=== PATIENT | female | born 1995 | race Caucasian/White ===

== ENCOUNTER 2021-08-12 16:07 | Observation (INO) | payer BC, OTHER ==
[~2021-08-12] VITALS: Ht 170.2 cm; Wt 75.3 kg
[2021-08-12] MEDS ORDERED: ZOLPIDEM 5 MG TABLET. PO PRN (16:30)
[2021-08-12] MEDS ORDERED: IV RINGERS,LACTATED 1000ML 1,000 ML IV SCH ×2 (16:30→16:45)
[2021-08-12] MEDS ORDERED: ACETAMINOPHEN 325 MG TABLET. PO PRN (16:30)
[2021-08-12] MEDS ORDERED: MAG HYDROX/ALUMINUM HYD/SIMETH 30 ML ORAL.SUSP PO PRN (16:30)
[2021-08-12] MEDS ORDERED: BETAMET ACET&NA PHOS 30 MG/5 ML VIAL. IM SCH (16:44)
[2021-08-12] MEDS ORDERED: IBUPROFEN 400 MG TABLET. PO PRN (16:45)
[2021-08-12] MEDS ORDERED: OXYTOCIN 30 UNIT/500 ML PREMIX 500 ML IV PRN (16:45)
[2021-08-12] MEDS ORDERED: 0.9 % SODIUM CHLORIDE 10 ML DISP.SYRIN. IV PRN (16:45)
[2021-08-12] MEDS ORDERED: AMPICILLIN SODIUM 2 GM in IV NORMAL SALINE 100ML 100 ML IV ONE (16:45)
[2021-08-12] MEDS ORDERED: LIDOCAINE 1% PF 30 ML VIAL. INJ PRN (16:45)
[2021-08-12] MEDS ORDERED: TERBUTALINE 1 MG/ML VIAL. SQ PRN (16:45)
[2021-08-12] MEDS ORDERED: MAGNESIUM SULFATE 4GM 100 ML IV STA (16:46)
[2021-08-12 16:52] LABS: AMNIO PT POSITIVE
[2021-08-12 16:55] LABS: BILIRUBIN,URINE NEGATIVE (NEG); CLARITY,URINE CLEAR; COLOR,URINE YELLOW; NITRITE,URINE NEGATIVE (NEG); PH,URINE 7.5 (<5.0-8.0); PROTEIN,URINE NEGATIVE (NEG-TRACE); UROBILINOGEN,URINE 0.2 mg/dL (0.2 mg/dL)
[2021-08-12] MEDS ORDERED: MAGNESIUM SULFATE 20GM 500 ML IV SCH (17:00)
[2021-08-12 17:02] VITALS: BP 124/77
[2021-08-12 17:11] LABS: BACTERIA,URINE 0 /HPF (0-FEW); RBC,URINE 0 /HPF (0-2); WBC,URINE OCC /HPF (0-4)
--- NOTE | 2021-08-12 17:26 | PDOC1 ---
SLAG SKIMMER H&P Date of Admission: Date of Admission: Aug 12, 2021 at 16:07 History of Present Illness: 26yo @ 32.6 weeks presents via ambulance from [facility] with complaints of uterine contractions and LOF. Reports small trickle of clear, non- odorous fluid @ 1200 - followed by continued leaking. Onset of UCs at approximately 1400 - describes as [place] q 5-7 minutes. Uncomplicated per pt. report, denies complications with previous /labor/delivery. Records requested and received. BT: AB-, received Rhogam @ 28 weeks (07/25/2021), RPR NR, RI, Hep B Neg, HIV Neg. GC/CT Neg. GCT: 73 TDaP (07/25/2021). No covid vaccination. Past Medical History: Cardiovascular: No pertinent hx Pulmonary: No pertinent hx GI: No pertinent hx Heme/Onc: No pertinent hx Psych: Depression Rheumatologic: No pertinent hx Infectious disease: No pertinent hx ENT: No pertinent hx Renal/: No pertinent hx Endocrine: No pertinent hx Dermatology: No pertinent hx Grav: 3 Para: 1 Past Surgical History: C Appy 2019 Social History: Smoke: No ALCOHOL: none Drugs: None Medications: Meds: Current Medications Medications (Trade) Dose Ordered Sig/Alberto Route PRN Reason Start Time Stop Time Status Last Admin Dose Admin Ringer's Solution 1,000 ml @ 125 mls/hr Q8H IV 08/12/21 16:30 08/12/21 16:49 Ampicillin Sodium 2 gm/Sodium Chloride 100 ml @ 200 mls/hr ONCE ONCE IV 08/12/21 16:45 08/12/21 17:14 08/12/21 16:50 Betamethasone Sodium Phosphate (Celestone Soluspan) 12 mg Q24H IM 08/12/21 16:44 08/13/21 16:45 08/12/21 16:55 Magnesium Sulfate 100 ml @ 25 mls/hr 1X STAT IV 08/12/21 16:46 08/12/21 20:45 08/12/21 16:55 Allergies: Coded Allergies: No Known Drug Allergies (Unverified , 08/12/21) Physical Exam: Vital Signs: Vital Signs Date Time Temp Pulse Resp B/P (MAP) Pulse Ox O2 Delivery O2 Flow Rate FiO2 08/12/21 17:02 99.5 69 16 124/77 (93) 96 Room Air 99.5 PE: GENERAL: No apparent distress. Alert and oriented. HEENT: Head normocephalic, atraumatic. NECK: Supple LUNGS: Clear to auscultation. HEART: RRR, S1, S2 present, pulses intact ABDOMEN: Soft, positive bowel sounds. EXTREMITIES: No cyanosis or edema. NEUROLOGIC: Normal speech, normal tone PSYCHIATRIC: Normal affect, normal mood. SKIN: No ulceration. Labs: Laboratory Tests Test 08/12/21 16:28 Amniotic Fluid Swab Test Positive Assessment & Plan: VTX per BSUS. FHR 135, moderate variability, + accels, no decels. TOCO: q 6, palpate mild. SVE 3-4/70/-1, clear, non-odorous fluid returned with SVE. Amnisure positive. GBS collected. IVF bolus. Amp 2gm. MgSO4 4gm bolus, to be followed by 2gm/hour. BMZ x 1. Call to Dr. Porter Ann to initiate transer to [facility]. 26yo @ 32.6 weeks 1. labor - MgSO4, BMZ 2. PROM - abx prophylaxis 3. Cat I FHT 4. GBS unknown - collected/pending 5. s/p Rhogam (07/25/21) 6. s/p TDaP (07/25/21) 7. No covid vaccine 8. GCT: 72 ZACK LARKIN CNM Aug 12, 2021 17:26
[2021-08-12 17:45] LABS: BASO # 0.1 x10^3/uL (0.0-0.2); BASO % 1 % (0-3); EOS # 0.1 x10^3/uL (0.0-0.7); EOS % 1 % (0-3); HEMATOCRIT 35.4 % (36.0-47.0); HEMOGLOBIN 12.2 g/dL (12.0-15.5); LYMPH # 2.4 x10^3/uL (1.0-4.8); LYMPH % 18 % (24-48); MEAN CORPUSCULAR HEMOGLOBIN 31 pg (25-35); MEAN CORPUSCULAR HGB CONC 35 g/dL (31-37); MEAN CORPUSCULAR VOLUME 90 fL (79-100); MONO % 8 % (0-9); NEUT # 9.6 x10^3/uL (1.8-7.7); NEUT % 73 % (31-73); PLATELET COUNT 275 x10^3/uL (140-400); RED BLOOD COUNT 3.95 x10^6/uL (3.50-5.40); RED CELL DISTRIBUTION WIDTH 13.2 % (11.5-14.5); WHITE BLOOD COUNT 13.2 x10^3/uL (4.0-11.0)
--- NOTE | 2021-08-12 18:21 | PDOC ---
VITAL SIGNS Vital Signs/I&O: Vital Signs Date Time Temp Pulse Resp B/P (MAP) Pulse Ox O2 Delivery O2 Flow Rate FiO2 08/12/21 17:02 99.5 69 16 124/77 (93) 96 Room Air 99.5 ALLERGIES Allergies: Allergies Coded Allergies Type Severity Reaction Last Updated Verified No Known Drug Allergies 08/12/21 No MEDS Medications: Current Medications Medications (Trade) Dose Ordered Sig/Alberto Route PRN Reason Start Time Stop Time Status Last Admin Dose Admin Ringer's Solution 1,000 ml @ 125 mls/hr Q8H IV 08/12/21 16:30 08/12/21 16:49 Ampicillin Sodium 2 gm/Sodium Chloride 100 ml @ 200 mls/hr ONCE ONCE IV 08/12/21 16:45 08/12/21 17:14 DC 08/12/21 16:50 Betamethasone Sodium Phosphate (Celestone Soluspan) 12 mg Q24H IM 08/12/21 16:44 08/13/21 16:45 08/12/21 16:55 Magnesium Sulfate 100 ml @ 25 mls/hr 1X STAT IV 08/12/21 16:46 08/12/21 20:45 08/12/21 16:55 Magnesium Sulfate 500 ml @ 50 mls/hr Q10H IV 08/12/21 17:00 08/12/21 17:46 LAB Lab: Laboratory Tests Test 08/12/21 16:25 08/12/21 16:28 08/12/21 16:37 08/12/21 17:34 Urine Collection Type Clean catch Urine Color Yellow Urine Clarity Clear Urine pH 7.5 (<5.0-8.0) Urine Specific [place] 1.020 (1.000-1.030) Urine Protein Negative mg/dL (NEG-TRACE) Urine Glucose (UA) Negative mg/dL (NEG) Urine Ketones (Stick) Negative mg/dL (NEG) Urine Blood Negative (NEG) Urine Nitrite Negative (NEG) Urine Bilirubin Negative (NEG) Urine Urobilinogen Dipstick 0.2 mg/dL (0.2 mg/dL) Urine Leukocyte Esterase Negative (NEG) Urine RBC 0 /HPF (0-2) Urine WBC Occ /HPF (0-4) Urine Squamous Epithelial Cells Mod /LPF Urine Bacteria 0 /HPF (0-FEW) Urine Mucus Slight /LPF Amniotic Fluid Swab Test Positive SARS-CoV-2 Antigen (Rapid) Negative (NEGATIVE) White Blood Count 13.2 x10^3/uL (4.0-11.0) H Red Blood Count 3.95 x10^6/uL (3.50-5.40) Hemoglobin 12.2 g/dL (12.0-15.5) Hematocrit 35.4 % (36.0-47.0) L Mean Corpuscular Volume 90 fL (79-100) Mean Corpuscular Hemoglobin 31 pg (25-35) Mean Corpuscular Hemoglobin Concent 35 g/dL (31-37) Red Cell Distribution Width 13.2 % (11.5-14.5) Platelet Count 275 x10^3/uL (140-400) Neutrophils (%) (Auto) 73 % (31-73) Lymphocytes (%) (Auto) 18 % (24-48) L Monocytes (%) (Auto) 8 % (0-9) Eosinophils (%) (Auto) 1 % (0-3) Basophils (%) (Auto) 1 % (0-3) Neutrophils # (Auto) 9.6 x10^3/uL (1.8-7.7) H Lymphocytes # (Auto) 2.4 x10^3/uL (1.0-4.8) Monocytes # (Auto) 1.0 x10^3/uL (0.0-1.1) Eosinophils # (Auto) 0.1 x10^3/uL (0.0-0.7) Basophils # (Auto) 0.1 x10^3/uL (0.0-0.2) Laboratory Tests 08/12/21 17:34 ASSESSMENT & PLAN A&P Dr. Ann refuses transfer 2/2 PROM. Call to [facility] Maternal Transport - Dr. Mckeon accepts transfer. ETA: 18:44. Patient and family updated, v/u of all. Pt. reports decreased frequency of UCs. Denies complaints. Justifications for Admission Other Justification ZACK LARKIN CNM Aug 12, 2021 18:21
--- NOTE | 2021-08-12 18:57 | PDOC ---
HEARING AIDE TECHNICIAN PROGRESS NOTE Date of Service: DATE: 08/12/21 TIME: 18:53 Subjective: Pt. reports occasional mild UCs. Denies increased frequency/intensity of UCs. Continues to leak small amounts of fluid. Objective: Objective: Abdomen palpates soft, non-tender. UCs q 4-8 minutes, palpate mild - pt. talks through UCs without difficulty. + FM. FHR: 135, moderate variability, + accels, no decels. Vital Signs: Vital Signs Date Time Temp Pulse Resp B/P (MAP) Pulse Ox O2 Delivery O2 Flow Rate FiO2 08/12/21 17:02 99.5 69 16 124/77 (93) 96 Room Air 99.5 Vital Signs Date Time Temp Pulse Resp B/P (MAP) Pulse Ox O2 Delivery O2 Flow Rate FiO2 08/12/21 17:02 99.5 69 16 124/77 (93) 96 Room Air 99.5 Labs: Laboratory Tests Test 08/12/21 16:25 08/12/21 16:28 08/12/21 16:37 08/12/21 17:34 Urine Collection Type Clean catch Urine Color Yellow Urine Clarity Clear Urine pH 7.5 (<5.0-8.0) Urine Specific [place] 1.020 (1.000-1.030) Urine Protein Negative mg/dL (NEG-TRACE) Urine Glucose (UA) Negative mg/dL (NEG) Urine Ketones (Stick) Negative mg/dL (NEG) Urine Blood Negative (NEG) Urine Nitrite Negative (NEG) Urine Bilirubin Negative (NEG) Urine Urobilinogen Dipstick 0.2 mg/dL (0.2 mg/dL) Urine Leukocyte Esterase Negative (NEG) Urine RBC 0 /HPF (0-2) Urine WBC Occ /HPF (0-4) Urine Squamous Epithelial Cells Mod /LPF Urine Bacteria 0 /HPF (0-FEW) Urine Mucus Slight /LPF Amniotic Fluid Swab Test Positive SARS-CoV-2 Antigen (Rapid) Negative (NEGATIVE) White Blood Count 13.2 x10^3/uL (4.0-11.0) H Red Blood Count 3.95 x10^6/uL (3.50-5.40) Hemoglobin 12.2 g/dL (12.0-15.5) Hematocrit 35.4 % (36.0-47.0) L Mean Corpuscular Volume 90 fL (79-100) Mean Corpuscular Hemoglobin 31 pg (25-35) Mean Corpuscular Hemoglobin Concent 35 g/dL (31-37) Red Cell Distribution Width 13.2 % (11.5-14.5) Platelet Count 275 x10^3/uL (140-400) Neutrophils (%) (Auto) 73 % (31-73) Lymphocytes (%) (Auto) 18 % (24-48) L Monocytes (%) (Auto) 8 % (0-9) Eosinophils (%) (Auto) 1 % (0-3) Basophils (%) (Auto) 1 % (0-3) Neutrophils # (Auto) 9.6 x10^3/uL (1.8-7.7) H Lymphocytes # (Auto) 2.4 x10^3/uL (1.0-4.8) Monocytes # (Auto) 1.0 x10^3/uL (0.0-1.1) Eosinophils # (Auto) 0.1 x10^3/uL (0.0-0.7) Basophils # (Auto) 0.1 x10^3/uL (0.0-0.2) Treponema pallidum Antibody Nonreactive (Nonreactive) Hepatitis B Surface Antigen Nonreactive (Nonreactive) Laboratory Tests 08/12/21 17:34 Laboratory Tests 08/12/21 17:34 Physical Exam: GENERAL: No apparent distress. Alert and oriented. HEENT: Head normocephalic, atraumatic. NECK: Supple LUNGS: Clear to auscultation. HEART: RRR, S1, S2 present, pulses intact ABDOMEN: Soft, positive bowel sounds. EXTREMITIES: No cyanosis or edema. NEUROLOGIC: Normal speech, normal tone PSYCHIATRIC: Normal affect, normal mood. SKIN: No ulceration. Assessment & Plan: Transport team present for report and evaluation of patient. Care relinquished to maternal transport team, in no apparent distress, not in active labor. ZACK LARKIN CNM Aug 12, 2021 18:57
[2021-08-12] MEDS ORDERED: AMPICILLIN SODIUM 1 GM in IV NORMAL SALINE 50ML 50 ML IV SCH (21:00)
[2021-08-13] MEDS ORDERED: PRENATAL MULTIVITAMIN TABLET. PO SCH (09:00)
== END 2021-08-12 19:10 | disposition short-term general hospital (02) ==
LOC: 3 SO LND 16:07
PROVIDERS: ADMIT Registered Nurse; ATTEND Registered Nurse
DX: O62.9 Abnormality of forces of labor, unspecified (principal); Z20.822 Contact with and (suspected) exposure to COVID-19; O42.913 Preterm premature rupture of membranes, unspecified as to length of time between rupture and onset of labor, third trimester; O36.8130 Decreased fetal movements, third trimester, not applicable or unspecified; Z3A.32 32 weeks gestation of pregnancy
CPT/HCPCS: 36415; 81001; 84112; 85025; 86592; 86762; 86850; 86900; 86901; 87340; 87426; 87653; 96365; 96366; 96368; 96372; A4314; G0378; G0379; J0290; J0702; J3475; J7120